=== PATIENT | female | born 1945 | race Caucasian/White ===

== ENCOUNTER 2020-06-27 10:23 | Outpatient (CLI) | payer MEDICARE | END 2020-06-27 10:24 | disposition home or self-care (01) | LOC: CSHULT 10:23 | PROVIDERS: ATTEND Internal Medicine | DX: R01.1 Cardiac murmur, unspecified (principal); R09.89 Other specified symptoms and signs involving the circulatory and respiratory systems | CPT/HCPCS: 93880 ==

== ENCOUNTER 2021-05-03 14:14 | Outpatient (CLI) | payer MEDICARE | END 2021-05-03 14:15 | disposition home or self-care (01) | LOC: CSHULT 14:14 | PROVIDERS: ATTEND Internal Medicine | DX: R53.83 Other fatigue (principal); R01.1 Cardiac murmur, unspecified; I51.89 Other ill-defined heart diseases; I70.0 Atherosclerosis of aorta; I35.1 Nonrheumatic aortic (valve) insufficiency; I34.0 Nonrheumatic mitral (valve) insufficiency | CPT/HCPCS: 93306 ==

== ENCOUNTER 2022-03-27 12:21 | Outpatient (CLI) | payer MEDICARE | END 2022-03-27 12:22 | disposition home or self-care (01) | LOC: CSHRAD 12:21 | PROVIDERS: ATTEND Nurse Practitioner Adult Health | DX: R05.1 Acute cough (principal) | CPT/HCPCS: 71046 ==

== ENCOUNTER 2023-05-20 10:50 | Outpatient (CLI) | payer MEDICARE | END 2023-05-20 10:51 | disposition home or self-care (01) | LOC: CSHMAMMO 10:50 | PROVIDERS: ATTEND Internal Medicine | DX: Z12.31 Encounter for screening mammogram for malignant neoplasm of breast (principal) | CPT/HCPCS: 77063; 77067 ==

== ENCOUNTER 2024-03-01 15:00 | Outpatient (CLI) | payer MEDICARE | END 2024-03-01 15:01 | disposition home or self-care (01) | LOC: CSHRAD 15:00 | PROVIDERS: ATTEND Internal Medicine | DX: M53.3 Sacrococcygeal disorders, not elsewhere classified (principal); M47.816 Spondylosis without myelopathy or radiculopathy, lumbar region | CPT/HCPCS: 72100 ==

== ENCOUNTER 2024-12-14 10:41 | Outpatient (CLI) | payer MEDICARE | END 2024-12-14 10:42 | disposition home or self-care (01) | LOC: CSHCT 10:41 | PROVIDERS: ATTEND Specialist | DX: R09.81 Nasal congestion (principal) ==